=== PATIENT | male | born 1980 | race African-American/Black ===

== ENCOUNTER 2021-05-22 09:38 | Emergency (ER) | payer OTHER, MEDICAID, SELFPAY ==
[2021-05-22 09:41] VITALS: BP 123/88; PULSE 85; RESP 14; TEMP 36.2; O2SAT 100; BMI 30.8
[2021-05-22 10:11] LABS: COVID19 -Nasal RAPID Negative (Negative)
--- NOTE | 2021-05-22 10:34 | ED.GENADULT ---
HPI - General Adult General Chief complaint: Dizziness Stated complaint: Dizzy, Nauseas, Headache- 4 weeks Time Seen by Provider: 05/22/21 09:59 Source: patient Mode of arrival: Ambulatory Limitations: no limitations History of Present Illness HPI narrative: Patient is a 41-year-old male who is here for evaluation of several weeks of occasional headache, sinus congestion, and occasional neck discomfort that he states is not associated with the headache. He is also having some dizziness and some nausea. Has not taken anything for symptoms prior to arrival. No chest pain. No shortness of breath. He is not immunized against COVID. Related Data Home Medications Medication Instructions Recorded Confirmed acetaminophen 325 mg capsule 650 mg PO Q6H PRN 05/22/21 05/22/21 (Tylenol) Allergies Allergy/AdvReac Type Severity Reaction Status Date / Time No Known Drug Allergies Allergy Verified 05/22/21 09:45 Review of Systems Constitutional Constitutional: Reports fever(s) and Reports headache(s) Eyes Eyes: Reports system reviewed and no additional complaints, except as documented ENT Ears, Nose, Mouth, and Throat: Reports as per HPI and Reports headache(s) Cardiovascular Cardiovascular: Reports as per HPI and Reports system reviewed and no additional complaints, except as documented Respiratory Respiratory: Reports as per HPI and Reports system reviewed and no additional complaints, except as documented Gastrointestinal Gastrointestinal: Reports system reviewed and no additional complaints, except as documented Genitourinary Genitourinary: Reports system reviewed and no additional complaints, except as documented Musculoskeletal Musculoskeletal: Reports system reviewed and no additional complaints, except as documented Integumentary/Breasts Skin/Breast: Reports system reviewed and no additional complaints, except as documented Neurologic Neurologic: Reports headache(s) Hematologic/Lymphatic On Anticoagulants: No Allergic/Immunologic Allergic/Immunologic: Reports system reviewed and no additional complaints, except as documented Patient History Medical History Gout Social History Smoking Status: Never smoker Smoking Status: Never smoker alcohol intake frequency: other Substance Use Type: does not use Exam Initial Vital Signs Initial Vital Signs: Vital Signs Temperature 97.1 F L 05/22/21 09:41 Pulse Rate 85 05/22/21 09:41 Respiratory Rate 14 05/22/21 09:41 Blood Pressure 123/88 05/22/21 09:41 Pulse Oximetry 100 05/22/21 09:41 Const General: cooperative, healthy appearing and comfortable HENMT Head: normal to inspection and normocephalic Ears: hearing grossly normal bilaterally and TM's normal bilaterally Nose: external nose normal Resp Effort & Inspection: normal respiratory effort Auscultation: clear to auscultation bilaterally Cardio Rate: regular rate GI Inspection: normal to inspection Skin General: no rashes or lesions noted Neuro General: patient alert, patient awake, patient oriented x3 and moves all extremities Extrem General: normal to inspection Course Orders Ordered: ED Orders 05/22/21 09:48 COVID19 -Nasal swab/Pre-Proc Stat 05/22/21 10:07 EKG-12 Lead Stat Vital Signs Vital signs: Vital Signs - 8 hr 05/22/21 09:41 Temperature 97.1 F L Pulse Rate 85 Respiratory Rate 14 Blood Pressure 123/88 Pulse Oximetry 100 Medical Decision Making Lab Data Labs: Lab Results 05/22/21 Range/Units 09:48 SARS-CoV-2 (PCR) Negative (Negative) ECG Data Attestation: I personally reviewed and interpreted this ECG as follows: Interpretation: Sinus rhythm Ventricular rate is 69 First-degree AV block pr interval to 6 6 milliseconds Normal axis Normal QRS Normal QTC No ST T wave changes MDM Narrative Medical decision making narrative: Patient's COVID test is negative. He has a benign exam and is relatively asymptomatic here in the emergency department. No indication for antibiotics. Low suspicion for meningitis. No indication for any radiologic studies now. We did discuss the use of decongestants. We discussed return precautions and follow-up instructions. He expressed understanding and agreement. Discharge Plan Departure Patient Disposition: Home Clinical Impression: Headache Instructions: DI for Headache Activity Restrictions/Additional Instructions: Recommend that you contact your primary doctor for a follow-up. Also recommend that you consider taking an [id number] antihistamine such as Claritin or Grace or Zyrtec. One of these medications could potentially help your symptoms. Return to the emergency department for any new or worsening symptoms Prescriptions: No Action acetaminophen [Tylenol] 325 mg Capsule 650 mg PO Q6H PRN (Reason: fever/pain) RF: 0
== END 2021-05-22 10:47 | disposition home or self-care (01) ==
PROVIDERS: Emergency Provider Emergency Medicine
DX: R51.9 Headache, unspecified (principal); M54.2 Cervicalgia; R42 Dizziness and giddiness; R11.0 Nausea; R07.9 Chest pain, unspecified; Z20.822 Contact with and (suspected) exposure to COVID-19
CPT/HCPCS: 87635; 93005; 99283; C9803